=== PATIENT | male | born 1955 | race Caucasian/White ===

== ENCOUNTER 2017-06-07 07:18 | Outpatient (CLI) | payer OTHER ==
[2017-06-07 08:13] LABS: eGFR (African) > 60; eGFR (Non-African) > 60
== END 2017-06-07 07:20 ==
LOC: LAB 07:18
PROVIDERS: ATTEND Family Medicine
DX: Z00.00 Encounter for general adult medical examination without abnormal findings (principal); Z12.5 Encounter for screening for malignant neoplasm of prostate
CPT/HCPCS: 36415; 80053; 80061; G0103

== ENCOUNTER 2017-06-13 10:33 | Day surgery (SDC) | payer OTHER ==
[~2017-06-13 10:33] MED LIST: LACTATED RINGERS 1,000 ML IV.SOLN IV ONE; PROPOFOL 500 MG/50 ML VIAL IV ONE; SALINE FLUSH 10 ML DISP.SYRIN IVF ONE
--- NOTE | 2017-06-14 10:22 | GI Report ---
REFERRING PHYSICIAN: Dr. Alexa Beckman [employer]ARMER: Renaldo Bethea MD PROCEDURE MEDICATION: Propofol as per anesthesia. INDICATIONS: This 61-year-old man is here for his 10-year follow up. He does have morbid obesity. He is on medicines for hypertension. He has a CPAP. He weighs 136 kilograms and carries that centrally. He does have peripheral edema. PROCEDURE PERFORMED: Colonoscopy and polypectomy. PROCEDURE: An Olympus video colonoscope was advanced through the rectum. At 70 cm in the descending colon, the patient had a 3 to 4 mm polyp removed with a cold snare. A redundant colon, though we were able to get to the cecum. The appendiceal orifice and terminal ileum were normal. On slow withdrawal, the cecum, ascending colon, and transverse colon with redundancy but no obvious intraluminal lesions noted. The descending colon and sigmoid with scattered diverticula. The polyp in the descending colon was removed as described. Retroflexion of the rectum shows hemorrhoids. Patient tolerated the procedure well. His pulse oximetry remained in the 90s throughout the whole procedure. FINDINGS: 1. Colon polyp removed from the descending colon. 2. Diverticular disease of the colon. 3. Metabolic syndrome. 4. Central obesity. RECOMMENDATIONS: 1. Would try to cut out white carbohydrates. 2. Cut back on calories in his diet. 3. Add Metamucil or Citrucel and more fiber and less calories. 4. Consider re-looking at his colon within 5 years pending the pathology report. 5. Even a 20 to 25 pound weight loss would tend to start helping hypertension and peripheral edema and reflux. cc: Dr. Alexa POLANCO
== END 2017-06-13 10:34 ==
LOC: OPSURG 10:33
PROVIDERS: ATTEND Internal Medicine Gastroenterology
DX: Z12.11 Encounter for screening for malignant neoplasm of colon (principal); D12.4 Benign neoplasm of descending colon; K57.30 Diverticulosis of large intestine without perforation or abscess without bleeding; E66.8 Other obesity; E88.81 Metabolic syndrome and other insulin resistance; I10 Essential (primary) hypertension
CPT/HCPCS: 45385; 88305; J2704; J7120; S1016

== ENCOUNTER 2017-08-23 11:05 | Outpatient (CLI) | payer OTHER | END 2017-08-23 11:06 | LOC: CARD 11:05 | PROVIDERS: ATTEND Internal Medicine Cardiovascular Disease | DX: I42.9 Cardiomyopathy, unspecified (principal); I10 Essential (primary) hypertension; G47.30 Sleep apnea, unspecified | CPT/HCPCS: 99213 ==